=== PATIENT | male | born 1955 | race Caucasian/White ===

== ENCOUNTER 2016-07-19 06:11 | Emergency (ER) | payer OTHER ==
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
[2016-07-19 08:11] VITALS: BP 151/83
== END 2016-07-19 08:10 | disposition home or self-care (01) ==
LOC: FB.ED 06:11
DX: M54.5 Low back pain (principal); Z87.891 Personal history of nicotine dependence; W00.0XXA Fall on same level due to ice and snow, initial encounter; Y99.0 Civilian activity done for income or pay
CPT/HCPCS: 81001; 99000; 99283